=== PATIENT | male | born 1975 | race Two or more races ===

== ENCOUNTER 2019-11-14 05:15 | Day surgery (SDC) | payer OTHER ==
[2019-11-10 19:08] VITALS: BMI 31.3
[2019-11-14] MEDS ORDERED: MIDAZOLAM HCL 2 MG/2 ML SINGLE DOSE VIAL ONE (16:26)
[2019-11-14] MEDS ORDERED: PROPOFOL 20 ML ONE ×2 (16:26→16:42)
[2019-11-14] MEDS ORDERED: ceFAZolin SODIUM 1 GM VIAL ONE (16:30)
[2019-11-14] MEDS ORDERED: ceFAZolin SODIUM 1 GM VIAL IVPB ONE (16:39)
[2019-11-14] MEDS ORDERED: KETOROLAC TROMETHAMINE 30 MG/1 ML VIAL ONE (16:40)
--- NOTE | 2019-11-14 17:13 | HP ---
DATE OF ADMISSION: 11/14/2019 PREOPERATIVE NOTE HISTORY OF PRESENT ILLNESS: The patient is a 44-year-old male with history of left renal colic, also has urgency, frequency. Has history of nephrolithiasis in the past. He Neptali any allergies, diabetes, or hypertension. Denies ethanolism or tobacco. PHYSICAL EXAMINATION: Abdomen: Physical examination revealed a soft abdomen. There was left CVA tenderness. Genitourinary: Genitalia were atraumatic. LABORATORY: Urinalysis revealed a large amount of blood. Ultrasound of the kidney revealed a stone in the left upper pole. Patient is scheduled to undergo a left extracorporeal shockwave lithotripsy. This was explained to patient, and he agrees. Desean [id number]
[2019-11-14 18:53] VITALS: BP 107/62; PULSE 62; TEMP 97.1
--- NOTE | 2019-11-15 11:17 | OP ---
DATE OF OPERATION: DATE OF DICTATION: 11/14/2019 PREOPERATIVE DIAGNOSIS: Left renal stone, hematuria, micturition disorder. POSTOPERATIVE DIAGNOSIS: Left renal stone, hematuria, micturition disorder. OPERATIVE PROCEDURE: Left extracorporeal shock wave lithotripsy. ANESTHESIA: General. SURGEON: Vibha Mcgill MD DESCRIPTION OF PROCEDURE: Under above-stated anesthesia patient was prepped and draped in the usual sterile manner. He was placed in the supine position. After proper positioning for the left upper pole renal stone, lithotripsy was commenced with an energy of 19 for 1000 shocks and then an energy of 20 for 1500 shocks. It appeared to reveal good fragmentation of the stone. The patient tolerated the procedure well. He returned to the recovery room in good condition. Desean RITTER/[id number]
== END 2019-11-14 19:00 | disposition home or self-care (01) ==
LOC: JASU-SURG 05:15
PROVIDERS: ATTEND Urology
PROC: 0TF4XZZ Fragmentation in Left Kidney Pelvis, External Approach (ICD-10-PCS; principal; 2019-11-14 15:15)
DX: N20.0 Calculus of kidney (principal); R31.9 Hematuria, unspecified; R39.198 Other difficulties with micturition

== ENCOUNTER 2020-09-02 05:30 | Day surgery (SDC) | payer OTHER ==
[2020-08-29 14:05] VITALS: BMI 35.5
[2020-09-02] MEDS ORDERED: MIDAZOLAM HCL 2 MG/2 ML SINGLE DOSE VIAL ONE ×2 (16:59→17:00)
[2020-09-02] MEDS ORDERED: PROPOFOL 20 ML ONE (17:24)
[2020-09-02 17:44] VITALS: PULSE 72
[2020-09-02 19:08] VITALS: BP 108/71; TEMP 97.8
== END 2020-09-02 18:40 | disposition home or self-care (01) ==
LOC: JASU-SURG 05:30
PROVIDERS: ATTEND Urology
PROC: 0TF4XZZ Fragmentation in Left Kidney Pelvis, External Approach (ICD-10-PCS; principal; 2020-09-02 15:30)
DX: N20.0 Calculus of kidney (principal)